=== PATIENT | male | born 1990 | race Two or more races ===

== ENCOUNTER 2017-08-07 11:58 | Emergency (ER) | payer MEDICAID ==
[~2017-08-07] VITALS: Ht 167.6 cm; Wt 76.2 kg
[2017-08-07] MEDS ORDERED: methylPREDNISolone SOD SUCC 125 MG/2 ML VL IM ONE (14:00)
[2017-08-07] MEDS ORDERED: cefTRIAXone W LIDOCAINE 1 GM IM IM ONE (14:00)
[2017-08-07] MEDS ORDERED: cefTRIAXone SOD 1,000 MG VL ONE (16:09)
[2017-08-07 16:19] VITALS: BP 118/74
== END 2017-08-07 16:48 | disposition home or self-care (01) ==
LOC: ER 11:58
DX: L03.114 Cellulitis of left upper limb (principal); L03.113 Cellulitis of right upper limb
CPT/HCPCS: 36415; 73110; 73130; 85652; 96372; 99285; J0696; J2930